=== PATIENT | male | born 1970 | race Caucasian/White ===

== ENCOUNTER 2018-01-08 11:25 | Emergency (ER) | payer OTHER ==
[~2018-01-08 11:25] MED LIST: AMAN100T PO; LOSA25TA PO; QUET1TAB10; QUET1TAB8 PO
[2018-01-08 11:34] VITALS: BP 142/94; PULSE 81; RESP 16; TEMP 98.8; O2SAT 96
[2018-01-08] MEDS ORDERED: GABA100C4 PO ×2 (11:44→11:53)
--- NOTE | 2018-01-08 11:46 | PD ---
HPI Chief Complaint: Medication Refill Request Time Seen by Provider: 11:37 Travel History International Travel<30 days: No Contact w/Intl Traveler<30days: No Traveled to known affect area: No History of Present Illness HPI 47-year-old male with a history of traumatic brain injury, and need for medication refills. Patient is currently looking for a primary care physician and takes his insurance. He is looking for refills of his losartan, gabapentin, and quetiapine. He has no acute issues otherwise. No known drug allergies. PFSH Past Medical History Anxiety: No Depression: No Cancer: No Cardiovascular Problems: No Cerebrovascular Accident: No Diminished Hearing: No Endocrine: No Gastrointestinal Disorders: Yes Genitourinary: No Immune Disorder: No Musculoskeletal: No Neurologic: Yes Psychiatric: Yes Reproductive: No Respiratory: No Migraines: No Seizures: No Past Surgical History Appendectomy: Yes Other Surgery: No Social History Alcohol Use: No Tobacco Use: Yes (1 ppd) Substance Use: No (hx of debbie "a long time ago") Allergies-Medications (Allergen,Severity, Reaction): Coded Allergies: No Known Allergies (Unverified Adverse Reaction, Unknown, 01/08/18) Reported Meds & Prescriptions Reported Meds & Active Scripts Active Reported Gabapentin 100 Mg Cap 200 Mg PO TID Quetiapine (Quetiapine Fumarate) 100 Mg Tab 100 Mg PO Q6H Losartan (Losartan Potassium) 25 Mg Tab 25 Mg PO DAILY Review of Systems Except as stated in HPI: all other systems reviewed are Neg General / Constitutional: No: Fever Eyes: No: Visual changes HENT: No: Headaches Cardiovascular: No: Chest Pain or Discomfort Respiratory: No: Shortness of Breath Gastrointestinal: No: Abdominal Pain Genitourinary: No: Dysuria Musculoskeletal: No: Pain Skin: No Rash Neurologic: No: Weakness Psychiatric: No: Depression Endocrine: No: Polydipsia Hematologic/Lymphatic: No: Easy Bruising Physical Exam Narrative GENERAL: Patient is in no acute distress SKIN: Warm and dry. Normal color. Normal turgor HEAD: Atraumatic. Normocephalic. EYES: Pupils equal and round. No scleral icterus. No injection or drainage. ENT: No nasal bleeding or discharge. Mucous membranes pink and moist. Pharynx is clear. Airways patent. NECK: Trachea midline. Supple and nontender. CARDIOVASCULAR: Regular rate and rhythm. RESPIRATORY: No accessory muscle use. Clear to auscultation. Breath sounds equal bilaterally. GASTROINTESTINAL: Abdomen soft, non-tender, nondistended. Hepatic and splenic margins not palpable. MUSCULOSKELETAL: Extremities without clubbing, cyanosis, or edema. No obvious deformities. NEUROLOGICAL: Awake and alert. No obvious cranial nerve deficits. Motor grossly within normal limits. Five out of 5 muscle strength in the arms and legs. Normal speech. PSYCHIATRIC: Appropriate mood and affect; insight and judgment normal. Data Data Last Documented VS Vital Signs Date Time Temp Pulse Resp B/P (MAP) Pulse Ox O2 Delivery O2 Flow Rate FiO2 01/08/18 11:34 98.8 81 16 142/94 (110) 96 MDM Medical Decision Making Medical Screen Exam Complete: Yes Emergency Medical Condition: Yes Medical Record Reviewed: Yes Differential Diagnosis History TBI. Need for medication refill. Need for PCP . Narrative Course Patient is medically stable at time of exam. Patient is given a refill of his losartan 50 mg daily #30 with 2 refills Patient is given a refill of his gabapentin 100 mg tabs he takes 2 tablets 3 times daily #180 with 2 refills. Patient is given a prescription for his quetiapine 100 mg 4 times daily #120. With 2 refills Patient also given a prescription for quetiapine 300 mg 1 at bedtime #30 with 2 refills Patient to follow-up with local primary care physician that takes his insurance for further refills Diagnosis Primary Impression: Encounter for medication refill [facility]errals: [facility] Patient Instructions: General Instructions Additional Instructions: Patient is given a refill of his losartan 50 mg daily #30 with 2 refills Patient is given a refill of his gabapentin 100 mg tabs he takes 2 tablets 3 times daily #180 with 2 refills. Patient is given a prescription for his quetiapine 100 mg 4 times daily #120. With 2 refills Patient also given a prescription for quetiapine 300 mg 1 at bedtime #30 with 2 refills Patient to follow-up with local primary care physician that takes his insurance for further refills Med/Other Pt SpecificInfo: Prescription(s) given Disposition: 01 DISCHARGE HOME Condition: Stable Raymond Larios Jan 08, 2018 11:46
[2018-01-08] MEDS ORDERED: QUET1TAB8 PO (11:53)
[2018-01-08] MEDS ORDERED: QUET1TAB10 PO (11:53)
[2018-01-08] MEDS ORDERED: LOSA50TA PO (11:53)
== END 2018-01-08 12:02 | disposition home or self-care (01) ==
LOC: NEPK 11:25
DX: Z76.0 Encounter for issue of repeat prescription (principal); Z87.820 Personal history of traumatic brain injury; Z72.0 Tobacco use
CPT/HCPCS: 99281

== ENCOUNTER 2018-07-24 06:32 | Observation (INO) ==
[2018-07-24] MEDS ORDERED: Thrombin Topical Soln 5,000 UNIT Vial TOPICAL ONE (07:05)
[2018-07-24] MEDS ORDERED: Gelatin Size 100 Topical Foam ONE (07:05)
[2018-07-24] MEDS ORDERED: HYDROmorphone PF Inj 1 MG/ML Ampul ONE ×2 (07:30→08:19)
[2018-07-24] MEDS ORDERED: fentaNYL Citrate Inj 250 MCG/5 ML Ampul ONE (07:30)
[2018-07-24] MEDS ORDERED: Artificial Tears Opth Oint 3.5 GM Tube ONE (07:32)
[2018-07-24] MEDS ORDERED: Chlorhexidine Gluconate 2% 1 Pack (2 Cloths) TOPICAL ONE (07:33)
[2018-07-24] MEDS ORDERED: Metoprolol Tartrate 25 MG Tablet PO ONE (07:33)
[2018-07-24] MEDS: Sod Chloride 0.9% Inj 1,000 ML IV.SIG SCH (07:49)
[2018-07-24] MEDS ORDERED: Sodium Chlor 0.9% Inj 500 ML IV.SIG ONE (08:00)
[2018-07-24] MEDS ORDERED: Vancomycin Inj 1,000 MG in Sodium Chlor 0.9% Inj 250 ML IV.SIG SCH (08:00)
[2018-07-24] MEDS ORDERED: ceFAZolin 2 GM Premix Inj 2 GM/50 ML PIGGYBACK IV.SIG ONE (08:08)
[2018-07-24] MEDS ORDERED: Dexmedetomidine Inj 200 MCG/2 ML Vial ONE (08:22)
[2018-07-24] MEDS ORDERED: Lidocaine PF 1% Inj 5 ML Syringe OTHER ONE (08:27)
[2018-07-24] MEDS ORDERED: Propofol Inj 500 MG/50 ML Vial ONE (09:26)
--- NOTE | 2018-07-24 12:52 | XR ---
EXAM DATE: 07/24/2018 12:17 PM EDT AGE/SEX: 47 years / Male INDICATIONS: Hardware placement C4-5, C5-6. CLINICAL DATA: This is the patient's initial encounter. Patient reports that signs and symptoms have been present for 1 day and indicates a pain score of Nonresponsive. MEDICAL/SURGICAL HISTORY: . Herniated disk, stenosis. . COMPARISON: No prior exams available for comparison. FINDINGS: 3 lateral views of the cervical spine demonstrate anterior hardware at C4, C5, and C6 characteristic of anterior cervical discectomy and fusion. Hardware demonstrates no abnormality. CONCLUSION: Anterior plate and screws at C4-C6. Electronically signed by: Rian Jones MD 07/24/2018 12:51 PM EDT
[2018-07-24] MEDS ORDERED: Morphine Sulfate Inj 2 MG/ML Vial IV.PUSH PRN (13:22)
[2018-07-24] MEDS ORDERED: Bisacodyl 10 MG Supp RECTAL PRN (13:22)
[2018-07-24] MEDS: ceFAZolin 2 GM Premix Inj 2 GM/50 ML PIGGYBACK IV.SIG SCH (17:00)
--- NOTE | 2018-07-24 18:59 | P.OP ---
Preoperative Diagnosis: Cervical spinal stenosis with cervical myelopathy Postoperative Diagnosis: Cervical spinal stenosis with cervical myelopathy Date of procedure: 07/24/18 Procedure: C4-5, C5-6 anterior cervical discectomy, interbody arthodhesis using PEEK cage filled with autologous bone graft, Simplicity plate and screws Anesthesia: BARBARA Surgeon: Kenton Brumfield MD Back Wedger: Jacquelyn Gonsales Pathology: none sent Operation and Findings: INDICATIONS FOR THE PROCEDURE Mr Vo is a 47 year-old male who presented with intractable neck pain and clinical evidence of cervical myelopathy. He was found to have severe spinal stenosis with spinal cord compression. He has failed maximum nonsurgical management. A surgical decompression and arthrodhesis were indicated. The [id number] details of the procedure, indications, alternatives, risks and potential complications were fully discussed with the patient. The patient fully understood. All The questions were answered. No guarantees were given. The patient voiced requesting the procedure and provided informed consents. The patient was offered the alternative of delaying the procedure and continuing with nonsurgical management. DETAILS OF THE SURGICAL PROCEDURE After the induction of general anesthesia, endotracheal intubation was performed. A Kahn catheter, bilateral SIM hose, and sequential compression devices were placed and kept throughout the procedure. Placement of electrodes for neurophysiological monitoring of the somatosensorial evoked potentials. motor evoked potentials, and EMG as well as laryngeal nerve monitoring was achieved. The patient was positioned supine on a Cesar table with the head over a gel doughnut. All pressure points were carefully padded with eggcrate mattress. The eyes were tapped shut after ointment was applied by the anesthesiologist to prevent corneal abrasion. A Chad hugger was placed over the exposed lower body to maintain control of the core body temperature. The electrophysiological team placed the needles and electrodes in their proper location and baseline SSEP's and motor evoked potentials were registered prior and after positioning and endotracheal intubation. The anterior cervical region was prepped and draped in the usual sterile fashion. A localizing x-ray was performed with a C-arm. The surgical procedure was performed in several steps as follow: SURGICAL APPROACH A skin incision was made along the medial cervical crease with a #10 blade. The dissection was carried out through the platysma exposing the sternocleidomastoid muscle. The cervical spine was approached following the fascial layers of the neck just medial to the anterior border of the sternocleidomastoid and carotid sheath by a combination of sharp and dull dissection. The omohyoid muscle was identified and carefully dissected laterally and the deep cervical fascia was carefully opened. The longus colli muscles were retracted to each side of the midline. A marker was placed at the disc space C4-5 and a cross-table lateral x-ray performed with a C-arm. SURGICAL DECOMPRESSION In order to decompress the anterior surface of the spinal cord it was necessary to preform a microsurgical resection of the disk at C4-5 and C5-6. At this point in the procedure the operating microscope was draped in the usual sterile fashion and brought to the field. The rest of the surgical procedure was performed using microdissection technique with the exception of the closure. Under the operative microscopic, a self-retaining retractor was placed underneath the longus colli muscle. Anterior osteophite spurs werte carefully removed with the [place]. The annulus at C4-5 and C5-6 were incised with a #15 blade and microdiscectomy was then carefully carried out using angled curets and pituitary forceps. There were osteophitic/disk complexes causing severe mass effect and compression of the dural sac, spinal cord, and nerve roots. The posterior longitudinal ligament was then elevated with an angled curet and incised with a 15 bladed knife. A careful resection of the posterior longitudinal ligament was carried out using a thin footplate 2 mm Kerrison. A nerve hook was used to assess the epidural space behind the vertebral bodies C5 and C6 in search for residual disk fragments. The margins of the posterior endplates at C4-5 and C5-6 were carefully drilled and undercut with a TPS drill under high magnification. The decompression was then carried out laterally, and a bilateral foraminotomy was performed with a 2mm thin foot Kerrison. Then the vertebral bodies above and below the disk space were undercut using a 2 mm thin foot Kerrison. The epidural space was the systematically assessed with a nerve hook in search for disk fragments or scar tissue. An excellent decompression was achieved in both, the dural sac and bilateral exiting nerve roots. The incision was then irrigated with a large amount of antibiotic solution INTERBODY ARTHRODHESIS In order to avoid collapse of the disk space which would result in bilateral foraminal stenosis, and to increase the chances of a successful fusion, it was necessary to place an interbody cage filled with autologous bone. At this point of the procedure, the superior and inferior endplates were then evenly decorticated with a TPS drill. The use of a drill in combination with a curette allowed me to systematically remove the cartilaginous endplates, exposing healthy bone for the interbody arthrodesis. Fourteen millimeters distraction pins were then placed at the vertebral bodies adjacent to the disk space, and gentle distraction was applied. The size of the interbody cage was then assessed using different size spacers, and a rasp was used to ensure no residual cartilage. A PEEK cage of the appropriate size was selected, and the interbody arthrodesis was then preformed by carefully impacting a 7mm PEEK cage filled with autologous bone graft to the disc spaces C4-5 and C5-6. An excellent position of the cage was achieved. This was was confirmed anatomically by feeling the space posterior to the implant and distance to the anterior surface of the dural sac. Radiological confirmation of the position was performed with a cross lateral xray performed with the C-arm. INTERNAL INSTRUMENTAL FIXATION Once that the interbody device was in an appropriate position, it was necessary to stabilize the spine with anterior instrumentation. Anterior instrumentation has demonstrated to increase the rate of fusion, acelerate the patient's recovery, and decrease the rate of failed interbody grafts. At this point of the procedure, the distance between the vertebral bodies was carefully measures, and a Simplicity plate was brought to the field and presented in front of the vertebral bodies C4 C5 and C6. Molded Parts Inspector holes were then drilled using the TPS drill, and the plate was then secured to the spine using self-drilling, self-tapping screws. Initially, the inferior right screw was inserted, followed by placement of the contralateral upper screw. The remanding screws were sequentially placed in a contra-lateral fashion. A proper purchase was achieved with all screws and the position of the cage, plate and screws, and alignment of the spine was assessed anatomically by direct visualization, and radiologically by performing a cross lateral xray of the cervical spine with the C-arm. CLOSURE The incision was irrigated with several liters of antibiotic solution. Hemostasis was achieved with a bipolar. The screws were locked to prevent backing out. A 7 mm Cesar-Swanson drain was left in the prevertebral space and externalized through a separate stab incision. The incision was then closed in layers. 3-0 Vicryl with interrupted sutures was used to close the platysma and subcutaneous tissue. The skin was closed with 4-0 running subcuticular Vicryl and glue was applied to the skin. The drain was secured with a 3-0 nylon. At the end of the procedure the sponge, needle and instrument counts were all correct. The estimated blood loss was less than 50 cc. No blood transfusion was given. No intraoperative complications occurred. The patient received prophylactic antibiotics. The patient was then extubated and transferred to the recovery room in stable condition.
[2018-07-24] MEDS: Gabapentin 300 MG Capsule PO SCH (19:32)
[2018-07-24] MEDS: Senna/Docusate Sodium 8.6/50 MG Tablet PO SCH (21:13)
[2018-07-25] MEDS: ceFAZolin 2 GM Premix Inj 2 GM/50 ML PIGGYBACK IV.SIG SCH ×2 (01:07→09:11)
[2018-07-25] MEDS: Senna/Docusate Sodium 8.6/50 MG Tablet PO SCH ×2 (09:10→20:30)
[2018-07-25] MEDS: Lisinopril 5 MG Tablet PO SCH (09:10)
[2018-07-25] MEDS: Gabapentin 300 MG Capsule PO SCH ×3 (09:10→17:43)
--- NOTE | 2018-07-25 09:58 | P.PNNS ---
Subjective Interval history: No acute issues overnight. Having significant cravings for cigarettes. Physical Exam Vital signs: Vital Signs 07/24/18 12:25 07/24/18 12:30 07/24/18 12:45 Temperature 97.4 F L Pulse Rate 59 L 53 L 56 L Respiratory Rate 16 17 15 Blood Pressure 93/54 L 94/58 L 100/63 Pulse Oximetry 94 L 97 96 07/24/18 13:00 07/24/18 13:30 07/24/18 14:00 Temperature 97.6 F Pulse Rate 54 L 57 L 59 L Respiratory Rate 20 15 17 Blood Pressure 108/62 118/65 115/69 Pulse Oximetry 97 100 100 07/24/18 14:20 07/24/18 15:18 07/24/18 16:00 Temperature 97.2 F L 97.4 F L Pulse Rate 58 L 68 Respiratory Rate 14 15 14 Blood Pressure 126/77 116/81 Pulse Oximetry 98 96 07/24/18 20:00 07/25/18 00:00 07/25/18 01:30 Temperature 98.7 F 98.5 F Pulse Rate 75 81 Respiratory Rate 18 18 17 Blood Pressure 137/72 115/56 L Pulse Oximetry 95 94 L 07/25/18 04:00 07/25/18 08:00 Temperature 98.2 F 98.1 F Pulse Rate 72 70 Respiratory Rate 18 18 Blood Pressure 115/59 L 128/89 Pulse Oximetry 95 93 L Intake & Output 07/24/18 07/25/18 07/25/18 18:59 06:59 18:59 Intake Total 2460 / 2460 580 / 580 Output Total 390 / 390 Balance 2070 / 2070 580 / 580 Weight 91.7 kg 93.1 kg Intake: IV 100 / 100 Ancef 2 GM Premix Inj 2 gm In 100 / 100 50 ml @ 100 mls/hr IV.SIG Q8H RONALDO Rx#:[id number] Oral 360 / 360 480 / 480 Anesthesia Amount 2100 / 2100 Output: Estimated Blood Loss 80 / 80 Urine Amount (Catheter) 300 / 300 Indwelling Urethral Catheter 300 / 300 Wound Drainage # 1 Anterior Neck Other: # Voids 4 Date of Last Bowel Movement 07/23/18 07/23/18 07/23/18 Weight On Admission 91.7 kg - Routine Neurological Exam Alert and conversant. [place] J collar in place. Drain output is documented as 10 mL in [employer], but his nurse reports that it was emptied for a nearly full bulb once overnight and there are approximately 60 mL's in the bulb this morning , indicating that it has put out at least 100 mL's and possibly more. The drainage is fairly bloody. He is neurologically intact, good strength throughout. - Urinary Catheter Management Indwelling Urethral Catheter Cath placed during this visit: yes Reason for continuing: Hourly intake/output Insertion date: 07/24/18 Insertion time: 09:00 Assessment and Plan - Plan 47-year-old male, POD #1 from ACDF. Plan had been discharged home today, but I think that his TRAVIS output is too high to safely discontinue the anterior neck drain. Would favor keeping it in place another 24 hours and closely monitoring his output. Requested nurses to document output diligently. Discussed this with patient, including risks of anterior neck hematoma or seroma in the setting of recent ACDF, and he and his are in agreement to stay another night. Hopefully the drain output will decrease and we will be able to let him go tomorrow.
[2018-07-25] MEDS: Sod Chloride 0.9% Inj 1,000 ML IV.SIG SCH (17:46)
[2018-07-25] MEDS: Chlorhexidine Gluconate 2% 1 Pack (2 Cloths) TOPICAL SCH (17:46)
[2018-07-26 07:57] VITALS: BP 128/72; PULSE 79; RESP 18; TEMP 99.1; O2SAT 94
[2018-07-26] MEDS: Gabapentin 300 MG Capsule PO SCH (09:38)
[2018-07-26] MEDS: Lisinopril 5 MG Tablet PO SCH (09:39)
[2018-07-26] MEDS: Senna/Docusate Sodium 8.6/50 MG Tablet PO SCH (09:39)
--- NOTE | 2018-07-26 10:27 | P.PNNS ---
Subjective Interval history: No issues overnight. Reports feeling well. Ready to go home. Physical Exam Vital signs: Vital Signs 07/25/18 12:00 07/25/18 16:00 07/25/18 20:00 Temperature 98.4 F 97.9 F 98.1 F Pulse Rate 78 83 75 Respiratory Rate 18 18 17 Blood Pressure 119/79 127/59 L 122/82 Pulse Oximetry 94 L 95 93 L 07/26/18 00:00 07/26/18 01:00 EST 07/26/18 03:00 Temperature 98.5 F Pulse Rate 81 Respiratory Rate 17 18 17 Blood Pressure 100/57 L Pulse Oximetry 93 L 07/26/18 04:00 07/26/18 06:00 07/26/18 07:56 Temperature 98.0 F 98.0 F 99.1 F Pulse Rate 68 68 79 Respiratory Rate 16 16 18 Blood Pressure 115/71 115/71 128/72 Pulse Oximetry 92 L 92 L 94 L Intake & Output 07/25/18 07/26/18 07/26/18 19:59 06:59 18:59 Output Total 0 / 0 Balance 0 / 0 Weight Output: Wound Drainage 0 / 0 # 1 Anterior Neck 0 / 0 Other: Date of Last Bowel Movement 07/25/18 - Routine Neurological Exam Alert and conversant. Ambulatory, normal strength throughout. [place] J collar in place. TRAVIS 5-10 mL's. - Urinary Catheter Management Indwelling Urethral Catheter Cath placed during this visit: yes Reason for continuing: Hourly intake/output Insertion date: 07/24/18 Insertion time: 09:00 Assessment and Plan - Plan 47-year-old male, POD #2 from ACDF. TRAVIS output dropped off, we will discontinue it today and allow the patient to discharge home. Prescription for Harris given. He will call Dr. Brumfield's office on Friday for follow-up instructions.
--- NOTE | 2018-07-28 21:33 | P.DS ---
Date of admission: 07/24/18 13:28 Primary care physician: Dr Melida Shelby Brief History from admission: Cervical spinal stenosis with cervical myelopathy Date of procedure: 07/24/18 Procedure: C4-5, C5-6 anterior cervical discectomy, interbody arthodhesis using PEEK cage filled with autologous bone graft, Simplicity plate and screws Anesthesia: BARBARA Surgeon: Kenton Brumfield MD Supervisor Shuttle Preparation: Jacquelyn Gonsales Pathology: none sent Operation and Findings: INDICATIONS FOR THE PROCEDURE Mr Vo is a 47 year-old male who presented with intractable neck pain and clinical evidence of cervical myelopathy. He was found to have severe spinal stenosis with spinal cord compression. He has failed maximum nonsurgical management. A surgical decompression and arthrodhesis were indicated. DS: Medications - Discharge Medications Prescriptions: hydrocodone-acetaminophen 2 tab PO Q4H PRN #30 tab PRN Reason: Pain Scale 6 To 10 DS: Summary - Time Spent with Patient Total time spent providing and/or coordinating discharge services: - Quality: VTE Deep Vein Thrombosis/Pulmonary Embolism Present on Admission: No Results - Impressions ITS Impressions Cervical Spine X-Ray 07/24/18 00:00 CONCLUSION: Anterior plate and screws at C4-C6. Discharge Plan - Discharge Disposition Patient Disposition: Discharge Home - Discharge Condition Condition: Good - Discharge Order Discharge Orders: Discharge Order (Routine); Ordered 07/26/18 Ordered By: Kirk Rodas - Physicians Team Attending Provider: Kenton Brumfield - Rxs /Orders / Referrals /Forms Prescriptions: New hydrocodone-acetaminophen 10-325 mg Tablet 2 tab PO Q4H PRN (Reason: Pain Scale 6 To 10) Qty: 30 RF: 0 Continue atorvastatin 80 mg Tablet 80 mg PO DAILY carvedilol 3.125 mg Tablet 3.125 mg PO BID gabapentin 600 mg Tablet 600 mg PO TID lisinopril 5 mg Tablet 5 mg PO DAILY quetiapine 100 mg Tablet 100 mg PO QID quetiapine 300 mg Tablet 300 mg PO HS Referrals: Kenton Brumfield MD [NEUROSURGERY] - See Instructions - Discharge Instructions Patient Printed Instructions: Laminectomy (DC), [place] Collar (DC), Bandage Change (DC), [place] J Collar (DC) Additional Instructions: Follow up with Dr Brumfield as instructed, Notify his office if your pain is not being controled by current pain medication. Wear your [place] Collar at all times. Wear your [place] collar when you are showering No twisting, turning, heavy lifting, No driving, Notify Dr Brumfield if you notice any uncontroled pain, New numbness/tingling in your arms or finger tips. Good luck in your recovery, It has been a pleasure taking care of you. Thank you for choosing [facility] for your Medical needs. - Post Discharge Care Plan Care Plan Goals: Your Health Problems: Goals to Promote Your Health: * To prevent worsening of your condition * To maintain your health at the optimal level Directions to Meet Your Goals: * Take your medications as prescribed * Follow your dietary instruction * Follow activity as directed * Keep your appointments as scheduled * Take your immunizations and boosters as scheduled * If your symptoms worsen call your PCP * If no PCP go to Urgent Care or Emergency Room Smoking is dangerous to your health. Avoid second hand smoke. You may reach the 24-hour crisis hotline for domestic abuse at .
== END 2018-07-26 11:30 | disposition home or self-care (01) ==
LOC: N06 06:32 → HSDC 06:32 → N06 13:13
PROVIDERS: ADMIT Neurological Surgery; ATTEND Neurological Surgery